=== PATIENT | male | born 1995 | race Two or more races ===

== ENCOUNTER 2018-11-29 13:01 | Emergency (ER) | payer MEDICAID ==
[~2018-11-29] VITALS: Ht 162.6 cm; Wt 65.3 kg
[~2018-11-29 13:01] MED LIST: CLON0.1T PO; SERT25TA PO; TRAZ-251 PO
[2018-11-29 13:09] VITALS: BP 116/76
[2018-11-29 13:44] LABS: CLARITY,URINE CLEAR (Clear); COLOR,URINE STRAW (Yellow); GLUCOSE, URINE NEGATIVE (Neg); KETONES,URINE NEGATIVE (Neg); LEUKOCYTE ESTERASE ,URINE NEGATIVE (Neg); NITRITES, URINE NEGATIVE (Neg); OCCULT BLOOD,URINE NEGATIVE (Neg); PROTEIN,URINE NEGATIVE (Neg); UROBILINOGEN,URINE 0.2 E.U/dL (0.2-1.0)
[2018-11-29 13:46] LABS: UA COLLECTION TYPE CLN CATCH MIDSTREAM
[2018-11-29 13:47] LABS: BASOPHILS % (AUTO) 0.6 % (0-1); EOSINOPHILS # (AUTO) 0.2 X10'3 (0-0.9); EOSINOPHILS % (AUTO) 3.6 % (0-6); HEMOGLOBIN 16.1 g/dl (14.0-17.9); LYMPHOCYTES # (AUTO) 1.8 X10'3 (1.1-4.8); LYMPHOCYTES % (AUTO) 31.1 % (21-51); MEAN CORPUSCULAR HEMOGLOBIN 31.3 PG (27.0-31.0); MEAN CORPUSCULAR HGB CONC 34.3 g/dL (33.0-36.5); MEAN CORPUSCULAR VOLUME 91.2 FL (78-98); MEAN PLATELET VOLUME 8.2 FL (7.4-10.4); MONOCYTES # (AUTO) 0.4 X10'3 (0-0.9); MONOCYTES % (AUTO) 7.4 % (2-12); NEUTROPHILS # (AUTO) 3.3 X10'3 (1.8-7.7); NEUTROPHILS % (AUTO) 57.3 % (42-75); PLATELET COUNT 246 X10'3 (140-440); RED BLOOD COUNT 5.16 X10'6 (4.70-6.10); RED CELL DISTRIBUTION WIDTH 12.6 % (11.5-14.5); WHITE BLOOD COUNT 5.7 X10'3 (4.5-11.0)
[2018-11-29 13:54] LABS: ALANINE AMINOTRANSFERASE 59 U/L (12-78); ALBUMIN 4.5 G/DL (3.4-5.0); ALBUMIN/GLOBULIN RATIO 1.3 (1.1-1.5); ALKALINE PHOSPHATASE 81 IU/L (46-116); AMYLASE 45 U/L (25-115); ANION GAP 10 (8-16); ASPARTATE AMINO TRANSFERASE 23 U/L (10-37); BILIRUBIN,TOTAL 0.5 MG/DL (0.1-1.0); BLOOD UREA NITROGEN 12 MG/DL (7-18); BUN/CREATININE RATIO 15.8 (5.4-32.0); CHLORIDE 102 MMOL/L (99-107); CREATININE 0.76 MG/DL (0.60-1.10); GLUCOSE 122 MG/DL (70-104); LIPASE 86 U/L (73-393); POTASSIUM 3.6 MMOL/L (3.5-5.1); SODIUM 138 MMOL/L (135-145); TOTAL CARBON DIOXIDE 26.5 MMOL/L (24-32); eGFR > 90 ML/MIN
[2018-11-29] MEDS ORDERED: ONDA4TAB12 PO (14:18)
== END 2018-11-29 14:34 | disposition home or self-care (01) ==
LOC: ER 13:03
DX: G89.29 Other chronic pain (principal); R10.9 Unspecified abdominal pain; R11.2 Nausea with vomiting, unspecified; R53.1 Weakness; R42 Dizziness and giddiness; Z79.899 Other long term (current) drug therapy
CPT/HCPCS: 36415; 80053; 81003; 82150; 83690; 85025; 85610; 99283

== ENCOUNTER 2020-02-18 22:55 | Emergency (ER) | payer MEDICAID ==
[~2020-02-18] VITALS: Ht 165.1 cm; Wt 64.1 kg
[~2020-02-18 22:55] MED LIST changes: +ONDA4TAB12 PO
[2020-02-18] MEDS ORDERED: HYDROcodone/acetaminophen 10/325mg tab PO ONE (23:05)
[2020-02-18] MEDS ORDERED: sulfamethoxazole/trimethoprim DS (800/160mg) tablet PO ONE (23:05)
[2020-02-18] MEDS ORDERED: LIDOcaine 1% W/epiNEPHrine 1:200,000 10ml vial IJ ONE (23:05)
[2020-02-18] MEDS ORDERED: cephalexin 500mg capsule PO ONE (23:05)
[2020-02-18] MEDS ORDERED: naproxen 500mg tablet PO ONE (23:05)
[2020-02-18] MEDS ORDERED: CEPH-572 PO (23:26)
[2020-02-18] MEDS ORDERED: SULF1TAB49 PO (23:26)
[2020-02-18] MEDS ORDERED: NAPR-56 PO (23:26)
[2020-02-19 00:42] VITALS: BP 113/70
== END 2020-02-19 00:43 | disposition home or self-care (01) ==
LOC: ER 22:55
DX: L03.116 Cellulitis of left lower limb (principal); L02.612 Cutaneous abscess of left foot; J45.909 Unspecified asthma, uncomplicated; Z59.0 Homelessness; Z79.899 Other long term (current) drug therapy
CPT/HCPCS: 10060; 99284

== ENCOUNTER 2020-02-26 12:10 | Emergency (ER) | payer MEDICAID ==
[~2020-02-26] VITALS: Ht 165.1 cm; Wt 67.8 kg
[~2020-02-26 12:10] MED LIST changes: +NAPR-56 PO; +SULF1TAB49 PO
[2020-02-26 12:51] VITALS: BP 117/81
[2020-02-26] MEDS ORDERED: CLIN300C71 PO ×2 (14:04→14:08)
[2020-02-26] MEDS ORDERED: AMOX-422 PO (14:04)
== END 2020-02-26 14:20 | disposition home or self-care (01) ==
LOC: ER 12:11
DX: L02.01 Cutaneous abscess of face (principal); L03.211 Cellulitis of face; J45.909 Unspecified asthma, uncomplicated; Z72.89 Other problems related to lifestyle; Z59.0 Homelessness; Z79.899 Other long term (current) drug therapy
CPT/HCPCS: 99283

== ENCOUNTER 2020-03-11 11:33 | Emergency (ER) | payer MEDICAID ==
[~2020-03-11] VITALS: Ht 165.1 cm; Wt 60.0 kg
[~2020-03-11 11:33] MED LIST changes: +CLIN300C71 PO; -SULF1TAB49 PO
[2020-03-11 11:38] VITALS: BP 115/70
--- NOTE | 2020-03-11 14:11 | NUR ---
pt seen and dc'd by provider
== END 2020-03-11 14:13 | disposition home or self-care (01) ==
LOC: ER 11:34
DX: Z48.01 Encounter for change or removal of surgical wound dressing (principal); J45.909 Unspecified asthma, uncomplicated; Z59.0 Homelessness; Z79.899 Other long term (current) drug therapy
CPT/HCPCS: 99281

== ENCOUNTER 2024-07-26 14:01 | Emergency (ER) | payer BC, MEDICAID ==
[~2024-07-26] VITALS: Ht 165.1 cm; Wt 77.5 kg
[~2024-07-26 14:01] MED LIST changes: -NAPR-56 PO; +ONDA-243 PO; -ONDA4TAB12 PO
[2024-07-26 14:12] VITALS: BP 135/72; PULSE 89; RESP 18; TEMP 97.8; O2SAT 98
== END 2024-07-26 15:56 | disposition left against medical advice (07) ==
LOC: ER 14:01
DX: Z00.00 Encounter for general adult medical examination without abnormal findings (principal); Z53.21 Procedure and treatment not carried out due to patient leaving prior to being seen by health care provider